=== PATIENT | female | born 1950 | race Caucasian/White ===

== ENCOUNTER → 2019-10-17 | Outpatient (CLI) | payer MEDICARE, OTHER | LOC: LAB FS 08:14 | PROVIDERS: ATTEND Family Medicine | DX: E03.9 Hypothyroidism, unspecified (principal) | CPT/HCPCS: 36415; 84443 ==

== ENCOUNTER → 2021-04-25 | Outpatient (CLI) | payer MEDICARE, OTHER | LOC: CARD 10:26 | PROVIDERS: ATTEND Family Medicine | DX: I34.0 Nonrheumatic mitral (valve) insufficiency (principal); I51.7 Cardiomegaly | CPT/HCPCS: 93225; 93226; 93306 ==

== ENCOUNTER 2023-04-20 10:52 | Day surgery (SDC) | payer MEDICARE, OTHER ==
[2023-04-20] VITALS (9 sets, daily range): BP systolic 109–165; BP diastolic 50–91
[~2023-04-20] VITALS: Ht 167.7 cm; Wt 122.0 kg
[2023-04-20] MEDS ORDERED: CLINDAMYCIN 600 MG/50 ML IVPB 50 ML IV ONE (11:15)
--- NOTE | 2023-04-20 11:44 | ED Upper Extremity ---
General Chief Complaint: Upper Extremity Stated Complaint: FALL | BROKEN ARM Nursing Triage Note: pt to ed per [facility] ems with c/o fall at home. states right arm pain, ems states obvious deformity to right arm, skin open distal to elbow and bleeding controlled at this time, splint in place by ems. peripheral pulse palpable distal to injury Source: patient, EMS Exam Limitations: no limitations History of Present Illness Date Seen by Provider: Apr 20, 2023 Time Seen by Provider: 10:56 Initial Comments This 72-year-old woman presents to the emergency room via EMS from her home with a right elbow injury with gross disfigurement. 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 She denies any prodrome of lightheadedness, chest pain, shortness of breath, dizziness, palpitations, weakness, etc. She fell directly onto her right arm. She denies any other injuries such as head or neck injury. There was no loss of consciousness. She has a disruption of the skin on the medial aspect of the elbow which is now rotated anteriorly. It is unclear if this is a separate superficial wound or if this would qualify as an open fracture. She arrives in a vacuum splint applied by EMS. She is neurovascularly intact with sensation, capillary refill, finger motion, and radial pulse all intact. She has a tingling sensation in her fingers otherwise. She has had a recent tetanus booster. She is not anticoagulated or on antiplatelet therapy. She has had a remote right elbow dislocation at least 10 years ago. She has so far declined pain medication. She lists fentanyl as an allergy. She also reports having difficulty with getting sick (nauseated) when coming out of anesthesia. Allergies and Home Medications Allergies Coded Allergies: Penicillins (Unverified Allergy, Mild, 04/20/23) fentanyl (Unverified Allergy, Mild, 04/20/23) Patient Home Medication List Home Medication List Reviewed: Yes Review of Systems Constitutional: no symptoms reported EENTM: no symptoms reported Respiratory: no symptoms reported Cardiovascular: no symptoms reported Gastrointestinal: no symptoms reported Genitourinary: no symptoms reported : No Musculoskeletal: see HPI Skin: see HPI Psychiatric/Neurological: No Symptoms Reported Past Yoozrnm-Obcpjh-Gybiem Hx Patient Social History Tobacco Use?: No Use of E-Cig and/or Vaping dev: No Substance use?: No Alcohol Use?: No Past Medical History Surgery/Hospitalization HX: hypothyroid, htn, back pain Surgeries: Yes Orthopedic (Knees, back) Respiratory: No Cardiac: Yes Palpitations Neurological: No : No Genitourinary: No Gastrointestinal: No Musculoskeletal: Yes Chronic Back Pain Endocrine: Yes Hypothyroidsim Are Your Blood Sugars Over 250: No Cancer: No Psychosocial: No Physical Exam Vital Signs Vital Signs - First Documented 04/20/23 10:56 Temp 36.6 Pulse 63 Resp 20 B/P (MAP) 164/134 (144) Pulse Ox 98 Capillary Refill : Height, Weight, BMI Height: '" Weight: lbs. oz. kg; 43.00 BMI Method: General Appearance: WD/WN, mild distress HEENT: PERRL/EOMI, normal ENT inspection Neck: normal inspection Cardiovascular: regular rate, rhythm, no edema, no murmur Respiratory: lungs clear, normal breath sounds Shoulder: normal inspection, non-tender Elbow/Forearm: Right (Gross disfigurement of the right elbow with obvious fracture and/or dislocation. Minor disruption of the skin with protruding adipose tissue and scant bleeding on the inferior aspect of the elbow now rotated anteriorly. Injury seems to be confined to the elbow region. Radial pulse, fingers sensation, capillary refill, and finger range of motion all intact.) Wrist: Yes normal inspection, Yes non-tender, Yes normal ROM Hand: normal inspection, non-tender, no evidence of injury, normal ROM, Right Neurologic/Tendon: normal sensation, normal motor functions, normal tendon functions, responds to pain Neurologic/Psychiatric: no motor/sensory deficits, alert, normal mood/affect, oriented x 3 Skin: normal color, warm/dry, other (As above) Progress/Results/Core Measures Results/Orders Lab Results Laboratory Tests Test 04/20/23 11:05 Range/Units White Blood Count 8.9 4.3-11.0 10^3/uL Red Blood Count 5.06 3.80-5.11 10^6/uL Hemoglobin 14.8 11.5-16.0 g/dL Hematocrit 45 35-52 % Mean Corpuscular Volume 89 80-99 fL Mean Corpuscular Hemoglobin 29 25-34 pg Mean Corpuscular Hemoglobin Concent 33 32-36 g/dL Red Cell Distribution Width 14.6 H 10.0-14.5 % Platelet Count 221 130-400 10^3/uL Mean Platelet Volume 11.1 9.0-12.2 fL Immature Granulocyte % (Auto) 1 % Neutrophils (%) (Auto) 76 H 42-75 % Lymphocytes (%) (Auto) 16 12-44 % Monocytes (%) (Auto) 5 0-12 % Eosinophils (%) (Auto) 2 0-10 % Basophils (%) (Auto) 1 0-10 % Neutrophils # (Auto) 6.8 1.8-7.8 10^3/uL Lymphocytes # (Auto) 1.4 1.0-4.0 10^3/uL Monocytes # (Auto) 0.4 0.0-1.0 10^3/uL Eosinophils # (Auto) 0.2 0.0-0.3 10^3/uL Basophils # (Auto) 0.1 0.0-0.1 10^3/uL Immature Granulocyte # (Auto) 0.1 0.0-0.1 10^3/uL Prothrombin Time 13.0 12.2-14.7 SEC INR Comment 1.0 0.8-1.4 Activated Partial Thromboplast Time 31 24-35 SEC Sodium Level 143 135-145 MMOL/L Potassium Level 3.7 3.6-5.0 MMOL/L Carbon Dioxide Level 19 L 21-32 MMOL/L Anion Gap 13 5-14 MMOL/L Blood Urea Nitrogen 19 H 7-18 MG/DL Creatinine 0.79 0.60-1.30 MG/DL Estimat Glomerular Filtration Rate 80 BUN/Creatinine Ratio 24 Glucose Level 117 H 70-105 MG/DL Calcium Level 9.4 8.5-10.1 MG/DL Corrected Calcium 9.4 8.5-10.1 MG/DL Total Bilirubin 0.7 0.1-1.0 MG/DL Aspartate Amino Transf (AST/SGOT) 20 5-34 U/L Alanine Aminotransferase (ALT/SGPT) 23 0-55 U/L Alkaline Phosphatase 77 40-136 U/L Total Protein 6.8 6.4-8.2 GM/DL Albumin 4.0 3.2-4.5 GM/DL My Orders Orders - KAYE TORRES MD Elbow, Right, 2 View (04/20/23 11:14) Clindamycin 600 Mg/50 Ml Ivpb (Clindamyc (04/20/23 11:15) Cbc With Automated Diff (04/20/23 11:41) Comprehensive Metabolic Panel (04/20/23 11:41) Protime With Inr (04/20/23 11:41) Partial Thromboplastin Time (04/20/23 11:41) Chest 1 View, Ap/Pa Only (04/20/23 11:41) Ed Iv/Invasive Line Start (04/20/23 11:41) Morphine Injection (Morphine Injection (04/20/23 12:00) Ekg Tracing (04/20/23 11:55) Bupivacaine 0.5% 10 Ml Inj (Bupivacaine (04/20/23 12:01) Medications Given in ED Current Medications Medications Dose Ordered Sig/Eyad Route Start Time Stop Time Status Last Admin Dose Admin Clindamycin Phosphate/Dextrose 50 ml @ 100 mls/hr ONCE ONCE IV 04/20/23 11:15 04/20/23 11:44 DC 04/20/23 11:33 100 MLS/HR Morphine Sulfate 2 mg ONCE ONCE IVP 04/20/23 12:00 04/20/23 12:01 DC 04/20/23 12:02 2 MG Vital Signs/I&O 04/20/23 04/20/23 10:56 12:02 Temp 36.6 36.6 Pulse 63 Resp 20 B/P (MAP) 164/134 (144) Pulse Ox 98 Blood Pressure Mean: 144 Progress Progress Note #1: Time: 12:05 Progress Note Patient was interviewed and examined upon arrival during triage. Report was received from EMS. Patient declined pain medication by EMS and on initial evaluation. She is alert and oriented with injuries that appear to be isolated to the right elbow region. She denies any pain or injury elsewhere. She denied any prodrome prior to the fall that could be related to other medical condition. The vacuum splint provided by EMS was carefully removed while providing manual support to the injury. The arm was straightened slightly with very gentle traction as patient was able to tolerate. This was done to facilitate x-rays. A 3 inch Ortho-Glass splint was then applied posteriorly. She remained neurovascularly intact after transitioning splints. Saline gauze was placed over the wound. 2 view x-ray of the right elbow was obtained. Dislocation of the elbow was noted with 1, and possibly 2, fractures of the radial head by my interpretation. Radiologist's report was reviewed and seem to concur with this assessment. Chest x-ray was also obtained in preparation for surgery and was unremarkable by my interpretation. Radiologist's report also noted no acute abnormalities. Case was discussed with Dr. Bangura, orthopedic surgeon on-call. Imaging studies were reviewed with him. He would like to take the patient to the operating room for reduction and further examination of the wounds. Patient received clindamycin 600 mg IV in the ER for treatment of possible open f racture. Again, at this point it is unclear if the skin wound is a separate wound or contiguous with the fracture. Antibiotics were administered as a precaution. Patient did not need a tetanus booster as she recently received one. She did eventually ask for pain medication in small doses. Morphine 2 mg IV was administered. Preop labs were obtained including CBC, CMP, and coag ulation panel. These were all reviewed by me and were interpreted as clinically unremarkable. EKG demonstrated sinus rhythm with borderline heart rate of 50 with no other major abnormalities. Progress Note #2: Time: 12:13 Progress Note Patient has now been transferred to the surgery center. Initial ECG Impression Date: Apr 20, 2023 Initial ECG Impression Time: 12:00 Initial ECG Rate: 50 Initial ECG Rhythm: S.Mihai Initial ECG Intervals: Normal Comment Mild sinus bradycardia with no ST elevation or depression. No other abnormal intervals or axis deviation. Diagnostic Imaging Diagonstic Imaging: Xray Plain Films/CT/US/NM/MRI: elbow Comments NAME: JERONIMO JC [facility] REC#: [id number] PT STATUS: REG ER : 1950 PHYSICIAN: KAYE TORRES MD ADMIT DATE: 04/20/23/ER Signed Date of Exam:04/20/23 ELBOW, RIGHT, 2 VIEW CLINICAL HISTORY: Fall. Right arm pain. Elbow deformity. COMPARISON: None. TECHNIQUE: Two views of the right elbow. FINDINGS: There is a fracture/dislocation of the right elbow with dislocated ulnohumeral and radiohumeral joints and fracture involving the head of the radius. Additional fractures are not excluded although evaluation is suboptimal due to the deformity of the right elbow. There is surrounding soft tissue edema. IMPRESSION: Fracture/dislocation of the right elbow with dislocated ulnohumeral and radiohumeral joints and fracture of the head of the radius. Dictated by: Dictated on workstation # [id number] Dict: 04/20/23 1142 Trans: 04/20/23 1149 [id number] Interpreted by: OXANA GABRIEL DO Electronically signed by: OXANA GABRIEL DO 04/20/23 1149 Diagonstic Imaging: Xray Plain Films/CT/US/NM/MRI: chest Comments NAME: JERONIMO JC [facility] REC#: [id number] PT STATUS: REG ER : 1950 PHYSICIAN: KAYE TORRES MD ADMIT DATE: 04/20/23/ER Draft Date of Exam:04/20/23 CHEST 1 VIEW, AP/PA ONLY INDICATION: Preop for elbow surgery. Frontal chest obtained at 11:41 a.m. FINDINGS: Heart and mediastinal silhouette are normal in appearance. The lungs are clear. There is no pneumothorax or pleural fluid. There is a calcified node in the AP window and left hilum compatible with old granulomatous disease. IMPRESSION: Old granulomatous changes with no acute process in the chest. Dictated on workstation # [id number] Dict: 04/20/23 1156 Trans: 04/20/23 1202 [id number] Interpreted by: FARHANA WONG MD Departure Communication (Admissions) Time/Spoke to Admitting Phy: 11:57 Dr. Bangura Impression Primary Impression: Dislocation of right elbow Qualified Codes: S53.104A - Unspecified dislocation of right ulnohumeral joint, initial encounter Additional Impressions: Fracture of radial head, open Fall on same level Qualified Codes: W18.30XA - Fall on same level, unspecified, initial encounter Disposition: ADMITTED INPATIENT Condition: Stable Admissions Decision to Admit Reason: Admit from ER (Trauma) Decision to Admit/Date: Apr 20, 2023 Time/Decision to Admit Time: 11:57 Departure-Patient Inst. Referrals: SCOTT HEADR MD (PCP/Family) Primary Care Physician Copy Copies To 1: SCOTT HEARD MD, JOSHUA T MD Apr 20, 2023 11:44
[2023-04-20 11:48] LABS: BASOPHILS # (AUTO) 0.1 10^3/uL (0.0-0.1); BASOPHILS % (AUTO) 1 % (0-10); EOSINOPHILS # (AUTO) 0.2 10^3/uL (0.0-0.3); EOSINOPHILS % (AUTO) 2 % (0-10); HEMATOCRIT 45 % (35-52); HEMOGLOBIN 14.8 g/dL (11.5-16.0); LYMPHOCYTES # (AUTO) 1.4 10^3/uL (1.0-4.0); LYMPHOCYTES % (AUTO) 16 % (12-44); MEAN CORPUSCULAR HEMOGLOBIN 29 pg (25-34); MEAN CORPUSCULAR HGB CONC 33 g/dL (32-36); MEAN CORPUSCULAR VOLUME 89 fL (80-99); MEAN PLATELET VOLUME 11.1 fL (9.0-12.2); MONOCYTES # (AUTO) 0.4 10^3/uL (0.0-1.0); MONOCYTES % (AUTO) 5 % (0-12); NEUTROPHILS # (AUTO) 6.8 10^3/uL (1.8-7.8); NEUTROPHILS % (AUTO) 76 % (42-75); PLATELET COUNT 221 10^3/uL (130-400); WHITE BLOOD COUNT 8.9 10^3/uL (4.3-11.0)
[2023-04-20 11:59] LABS: POTASSIUM 3.7 MMOL/L (3.6-5.0)
[2023-04-20] MEDS ORDERED: morphine INJ 4 MG/ML 1 ML (VIAL/SYRINGE) IVP ONE (12:00)
[2023-04-20 12:01] LABS: CALCIUM 9.4 MG/DL (8.5-10.1)
[2023-04-20] MEDS ORDERED: BUPIVACAINE 0.5% 10 ML VIAL ONE (12:01)
[2023-04-20 12:02] LABS: TOTAL PROTEIN 6.8 GM/DL (6.4-8.2)
--- NOTE | 2023-04-20 12:03 | Diagnostic Imaging Report ---
INDICATION: Preop for elbow surgery. Frontal chest obtained at 11:41 a.m. FINDINGS: Heart and mediastinal silhouette are normal in appearance. The lungs are clear. There is no pneumothorax or pleural fluid. There is a calcified node in the AP window and left hilum compatible with old granulomatous disease. IMPRESSION: Old granulomatous changes with no acute process in the chest. Dictated by: Dictated on workstation # [id number]
[2023-04-20 12:04] LABS: BILIRUBIN,TOTAL 0.7 MG/DL (0.1-1.0)
[2023-04-20 12:05] LABS: CREATININE SERUM 0.79 MG/DL (0.60-1.30)
--- NOTE | 2023-04-20 12:09 | Progress Note-Pre Operative ---
Pre-Operative Progress Note Date of Available H&P: Apr 20, 2023 Date H&P Reviewed: Apr 20, 2023 Time H&P Reviewed: 12:09 Changes from last HP none Pre-Operative Diagnosis: Grade 1 open right posterior elbow dislocation FRANKLYN GUNN MD Apr 20, 2023 12:09
--- NOTE | 2023-04-20 12:10 | Progress Note-Post Operative ---
Post-Operative Progess Note Surgeon (s)/Brick Cleaner (s) Surgeon FRANKLYN GUNN MD Brick Cleaner: Devin Vasques Pre-Operative Diagnosis Grade 1 open right posterior elbow dislocation Post-Operative Diagnosis Grade 1 open right posterior elbow dislocation with flexor/pronator tendon disruption Procedure & Operative Findings Date of Procedure 04/20/23 Procedure Performed/Findings IRrigation and debridement of right elbow and open reduction with flexor/pronator repair Anesthesia Type GETA Estimated Blood Loss Estimated blood loss (mL): minimal Specimens/Packing Specimens Removed none Packing: none FRANKLYN GUNN MD Apr 20, 2023 12:10
[2023-04-20] MEDS ORDERED: SCOPOLAMINE 1.5 MG PATCH ONE (12:21)
[2023-04-20] MEDS ORDERED: ACHD5005 PO (12:23)
[2023-04-20] MEDS ORDERED: dexAMETHasone INJ 10 MG/ML 1 ML VIAL ONE ×2 (12:24→12:49)
[2023-04-20] MEDS ORDERED: SUCCINYLCHOLINE INJ 20 MG/1 ML 10 ML VIAL ONE (12:24)
[2023-04-20] MEDS ORDERED: LIDOCAINE PF 2% 5 ML VIAL ONE (12:24)
[2023-04-20] MEDS ORDERED: proPOfol INJECTION 200 MG/20 ML VIAL IV ONE (12:24)
[2023-04-20] MEDS ORDERED: MIDAZOLAM INJ 2 MG/2 ML VIAL ONE (12:25)
[2023-04-20] MEDS ORDERED: FAMOTIDINE INJ 20MG/2ML VIAL ONE (12:27)
[2023-04-20] MEDS ORDERED: NALOXONE 0.4 MG/ML 1 ML VIAL IV PRN (12:30)
[2023-04-20] MEDS ORDERED: FAMOTIDINE INJ 20MG/2ML VIAL IV ONE (12:30)
[2023-04-20] MEDS ORDERED: SCOPOLAMINE 1.5 MG PATCH TOP ONE (12:30)
[2023-04-20] MEDS ORDERED: HYDROcodone/ACETAMINOPHEN 7.5 MG/325 MG TABLET PO PRN (12:30)
[2023-04-20] MEDS ORDERED: LACTATED RINGERS 1,000 ML 1,000 ML IV PRN (12:30)
[2023-04-20] MEDS ORDERED: morphine INJ 4 MG/ML 1 ML (VIAL/SYRINGE) IVP PRN (12:30)
[2023-04-20] MEDS ORDERED: ONDANSETRON INJECTION 4 MG/2 ML (SDV) ONE (12:49)
[2023-04-20] MEDS ORDERED: HYDROmorphone INJECTION 2 MG/ML VIAL ONE (12:57)
[2023-04-20] MEDS ORDERED: BUPIVACAINE 0.5% 30 ML VIAL INJ ONE (13:02)
[2023-04-20] MEDS ORDERED: KETOROLAC INJ 30 MG/ML VIAL ONE (13:53)
[2023-04-20] MEDS ORDERED: SEVOFLURANE (ULTANE) 15 ML INHAL SOLN ONE (14:02)
--- NOTE | 2023-04-20 14:20 | Anesthesia-General Post-Op ---
General Patient Condition Mental Status/LOC: Same as Preop Cardiovascular: Satisfactory Nausea/Vomiting: Absent Respiratory: Satisfactory Pain: Controlled Complications: Absent Post Op Complications Complications None Follow Up Care/Instructions Patient Instructions None needed. Anesthesia/Patient Condition Patient Condition Patient is doing well, no complaints, stable vital signs, no apparent adverse anesthesia problems. No complications reported per nursing. D/C home per [facility] Criteria: Yes JOSE RAFAEL KASPER CRNA Apr 20, 2023 14:20
[2023-04-20] MEDS ORDERED: ONDANSETRON INJECTION 4 MG/2 ML (SDV) IVP PRN (14:30)
[2023-04-20] MEDS ORDERED: HYDROmorphone INJECTION 2 MG/ML VIAL IV ONE (14:30)
--- NOTE | 2023-04-20 15:16 | HISTORY AND PHYSICAL ---
DATE OF SERVICE: 04/20/2023 REASON FOR ADMISSION: Right grade I open elbow dislocation. HISTORY: The patient is a 72-year-old right hand dominant female who fell while bending over in her yard [ ] knee gave out. She presented from [place] with wound on the posterior aspect of the elbow with dislocation. She denies paresthesias. She does report she had an elbow dislocation 10 years ago. She denies antecedent pain. ALLERGIES: PENICILLIN, FENTANYL. PAST MEDICAL HISTORY: [ ] back pain, hypothyroidism, hypertension. PAST SURGERIES: Lumbar and knee. PHYSICAL EXAMINATION: Right upper extremity demonstrates gross deformity with prominence posteriorly. There is a small puncture wound posteriorly. She has intact sensation in radial, ulnar and median distribution. She has intact finger abduction, thumb IP flexion and extension. Radiographs revealed a posterior dislocation of the elbow. IMPRESSION: Grade I open posterior elbow dislocation. PLAN: Irrigation and debridement of the right elbow with closed reduction. Risks, benefits, options, ramifications and recovery were discussed at length with the patient. She understands and wishes to proceed. Job ID: [id number] DocumentID: [id number] Dictated Date: 04/20/2023 12:09:17 Interpretive Program Coordinator Date: 04/20/2023 15:14:00 Dictated By: FRANKLYN GUNN MD
[2023-04-20] MEDS: ONDANSETRON INJECTION 4 MG/2 ML (SDV) IVP PRN ×2 (15:42→19:57)
--- NOTE | 2023-04-20 15:44 | Progress Note ---
Standard Progress Note Progress Notes/Assess & Plan Date Seen by a Provider: Apr 20, 2023 Time Seen by a Provider: 15:42 Progress/Assessment & Plan denies paresthesias RUE in splint intact MCP abduction and extension intact thumb IP flexion and extension intact sensation to light touch throughout 2 plus radial pulse s/p r elbow dislocation IV abx 24 hours FRANKLYN GUNN MD Apr 20, 2023 15:44
--- NOTE | 2023-04-20 16:14 | Diagnostic Imaging Report ---
INDICATION: Right elbow injury, ORIF. TECHNIQUE: Two views of the right elbow were obtained with the portable intensifier in Surgery. 1 minute and 22 seconds of fluoroscopy time was used. 2.11 mGy of exposure. FINDINGS: The intraoperative views demonstrate reduction of the previous dislocation of the right elbow. Detail is somewhat limited. There is an anchor device overlying the medial humeral epicondyle. An avulsion fracture off the radial head is noted. IMPRESSION: Reduction of the previous dislocation of the right elbow. [place] device overlying the medial humeral epicondyle. Nondisplaced radial head fracture noted. Dictated by: Dictated on workstation # [id number]
[2023-04-20] MEDS ORDERED: PROMETHAZINE INJ 25 MG/ML VIAL IVP PRN (17:00)
[2023-04-20] MEDS ORDERED: PROCHLORPERAZINE INJ 10 MG/2ML VIAL IV PRN (17:00)
[2023-04-20] MEDS: CLINDAMYCIN 600 MG/50 ML IVPB 50 ML IV SCH (19:56)
--- NOTE | 2023-04-20 20:14 | OPERATIVE REPORT ---
DATE OF SERVICE: 04/20/2023 PREOPERATIVE DIAGNOSIS: Grade 1 open right elbow dislocation. POSTOPERATIVE DIAGNOSES: 1. Grade 1 open right elbow dislocation. 2. Disruption of the flexor/pronator mass, right elbow. PROCEDURES: 1. Open reduction of right elbow dislocation. 2. Repair of the flexor/pronator mass, right elbow. 3. Irrigation and debridement, right elbow. 4. Long arm splint application. SURGEON: Luis Bangura MD CASE PLANNER: Devin Vasques, who assisted throughout the procedure and closed the incision. ANESTHESIA: General endotracheal by Linwood Horton CRNA. TOURNIQUET TIME: Approximately 40 minutes at 250 mmHg. ESTIMATED BLOOD LOSS: Minimal. DRAINS: None. COMPLICATIONS: None. POSTOPERATIVE PLAN: Splint wear for 2 weeks. The patient was transferred to recovery room awake and stable condition. STATEMENT OF MEDICAL NECESSITY: The patient is a 72-year-old female who 10 years ago sustained a right elbow dislocation, but has been doing well until she fell today and sustained a dislocation with a punctate wound on the anterior medial aspect of the elbow. This was less than 1 cm in size, but bleeding was noted. The patient was given clindamycin in the emergency department and was taken urgently to the operating room. She had no gross neurovascular abnormalities with the exception of diffuse paresthesias distally preoperatively. DESCRIPTION OF PROCEDURE: After risks and benefits of the procedure were discussed and questions were answered and informed consent signed and placed on chart. The operative site was confirmed in the preoperative holding initialed by surgeon. The patient was then transferred to the operating room. After adequate levels of general endotracheal anesthetic were obtained, a timeout was called, confirming the operative site. Closed reduction was attempted and could not be obtained. The right upper extremity was then prepped and draped in the usual sterile fashion. The punctate wound was extended proximally and distally and through blunt finger dissection, the joint was identified. The flexor pronator tendon origin had avulsed and had flipped into the joint. This was removed from the joint and the elbow was able to be reduced under direct visualization. The median and ulnar nerves were identified and carefully protected throughout the procedure and intact at the conclusion of the procedure. The joint was irrigated with 3 liters of pulse lavage. No gross contamination was noted. The puncture wound was sharply debrided. A single corkscrew type anchor was used at the medial epicondyle and a modified Vasyl-Milan repair was obtained. Fluoroscopy in AP, lateral and oblique planes revealed reduction of the elbow was taken through range of motion, found to be stable. Under direct visualization, the elbow was reduced as well. The joint was further irrigated with pulse lavage using a total of 6 liters throughout the procedure. The tourniquet was deflated. 3-0 Vicryl was used to reapproximate subcutaneous tissue and skin was closed with 3-0 nylon in vertical mattress interrupted fashion. A soft dressing and posterior splint were applied. The patient was transferred to the recovery room awake and in stable condition. Job ID: [id number] DocumentID: [id number] Dictated Date: 04/20/2023 13:59:34 Windshield Repair Technician Date: 04/20/2023 20:12:00 Dictated By: LUIS BANGURA MD
[2023-04-21 03:26] VITALS: BP 112/67
[2023-04-21] MEDS: CLINDAMYCIN 600 MG/50 ML IVPB 50 ML IV SCH (03:29)
[2023-04-21 05:44] LABS: HEMOGLOBIN 12.8 g/dL (11.5-16.0)
[2023-04-21 07:55] VITALS: BP 107/64
[2023-04-21] MEDS ORDERED: LEVO137T2 PO (10:25)
[2023-04-21] MEDS ORDERED: MTP25TSR PO (10:25)
[2023-04-21] MEDS ORDERED: KETO5DRO20 OS (10:25)
[2023-04-21] MEDS ORDERED: IBUP-1780 PO (10:25)
--- NOTE | 2023-04-21 11:10 | Progress Note ---
Standard Progress Note Progress Notes/Assess & Plan Date Seen by a Provider: Apr 21, 2023 Time Seen by a Provider: 10:58 Progress/Assessment & Plan denies paresthesias RUE in splint intact MCP abduction and extension intact thumb IP flexion and extension intact sensation to light touch throughout 2 plus radial pulse s/p r elbow dislocation IV abx 24 hours Final Diagnosis reports paresthesias in index long and thumb Vital Signs Date Time Temp Pulse Resp B/P (MAP) Pulse Ox O2 Delivery O2 Flow Rate FiO2 04/21/23 08:00 Room Air 04/21/23 07:55 36.3 53 14 107/64 (78) 96 Room Air 04/21/23 03:26 36.2 56 20 112/67 (82) 92 Room Air 0.00 0.00 04/20/23 23:17 36.4 68 20 127/68 (87) 92 Room Air 0.00 0.00 04/20/23 20:01 37.0 51 20 123/57 (79) 92 Room Air 04/20/23 19:55 Room Air 04/20/23 16:25 36.5 52 20 109/68 (82) 93 Room Air 04/20/23 15:10 93 Room Air 04/20/23 15:05 Room Air 04/20/23 15:00 36.2 16 165/59 (94) 94 Room Air 04/20/23 14:50 16 160/50 (86) 99 Nasal Cannula 2.00 04/20/23 14:40 Nasal Cannula 2.00 04/20/23 14:40 16 150/62 (91) 99 Nasal Cannula 2.00 04/20/23 14:30 16 139/79 (99) 97 Nasal Cannula 2.00 04/20/23 14:25 Nasal Cannula 2.00 04/20/23 14:20 18 132/58 (82) 98 Nasal Cannula 2.00 04/20/23 14:11 36.5 16 113/91 (98) 99 OxyMask 6.00 04/20/23 14:11 OxyMask 6.00 04/20/23 12:10 36.3 52 18 135/66 97 Room Air 04/20/23 12:02 36.6 I & O 04/21/23 07:00 Intake Total 1600 ml Balance 1600 ml Laboratory Tests Test 04/21/23 05:27 Range/Units Hemoglobin 12.8 11.5-16.0 g/dL Hematocrit 40 35-52 % RUE--in splint intact MCP ext, thumb IP flexion and extension sl decreased sensation in median distribution O/W intact throughout s/p I and D and reduction right elbow dislocation median nerve was visulaized at time of surgery and was intact but had been stretched from dislocation dc home fu two weeks regular diet leave splint on until FU FRANKLYN GUNN MD Apr 21, 2023 11:10
[2023-04-21 11:36] VITALS: BP 130/74
[2023-04-21 13:04] VITALS: BP 130/74
== END 2023-04-21 12:50 | disposition home or self-care (01) ==
LOC: EDUNIT# 10:52 → ER 10:54 → SDC 12:40 → 4TH 15:25 → SDC 04-21 12:50
PROVIDERS: ATTEND Orthopaedic Surgery
DX: S53.104A Unspecified dislocation of right ulnohumeral joint, initial encounter (principal); S56.211A Strain of other flexor muscle, fascia and tendon at forearm level, right arm, initial encounter; W18.30XA Fall on same level, unspecified, initial encounter; Z28.310 Unvaccinated for COVID-19
CPT/HCPCS: 24341; 24615; 29105; 71045; 73070; 76000; 80053; 85014; 85018; 85025; 85610; 85730; 93005; 99284; C1713; 36415